=== PATIENT | male | born 1950 | race Caucasian/White ===

== ENCOUNTER 2023-09-27 10:34 | Inpatient (IN) | payer MEDICARE, BC ==
[2023-09-27] MEDS: FUROSEMIDE 10 MG/ML 4 ML VIAL IV STA (11:19)
[2023-09-27] MEDS: NITROGLYCERIN SL TABS 0.4 MG TAB SUBLINGUAL STA (11:20)
[2023-09-27 11:27] LABS: Partial Thromboplastin Time 25.6 sec (22.0-30.0); Prothrombin Time 11.2 sec (10.0-12.5)
[2023-09-27 11:31] LABS: ALT 18 U/L (4-49); AST 25 U/L (17-59); African American GFR (CKD) >90 (>60 ml/min/1.73 sqM); Alkaline Phosphatase 111 U/L (38-126); Anion Gap 7 mmol/L; Blood Urea Nitrogen 15 mg/dL (9-20); Calcium 9.3 mg/dL (8.4-10.2); Carbon Dioxide 29 mmol/L (22-30); Chloride 103 mmol/L (98-107); Glucose 288 mg/dL (74-99); Magnesium 1.8 mg/dL (1.6-2.3); Non-African American GFR(CKD) 85 (>60 ml/min/1.73 sqM); Potassium 4.9 mmol/L (3.5-5.1); Sodium 139 mmol/L (137-145); Total Bilirubin 0.8 mg/dL (0.2-1.3); Total Protein 6.8 g/dL (6.3-8.2)
--- NOTE | 2023-09-27 11:31 | ED ---
General Adult HPI - General Chief complaint: Shortness of Breath Stated complaint: Abd pain,SOB-sent by PCP Time Seen by Provider: 09/27/23 10:49 Source: patient, RN notes reviewed Mode of arrival: ambulatory Limitations: no limitations - History of Present Illness Initial comments: 73-year-old male presents emergency department with chief complaint of shortness of breath. Patient states has been having increasing shortness of breath and swelling. He does have a history of A-fib, CHF. Patient states he has had multiple ablations he states he recently stopped his Lasix 2 days ago because it was not helping he even doubled his Lasix prior to stopping it but he continued to have increasing weight gain, swelling, orthopnea and shortness of breath. Patient states his legs burn and hurt from his current swelling he states that he had significant amount of abdominal swelling and unable to get his pants on he has exertional dyspnea. - Related Data Home Medications Medication Instructions Recorded Confirmed Apixaban [Eliquis] 5 mg PO BID 01/30/23 01/30/23 Atorvastatin [Lipitor] 20 mg PO DAILY 01/30/23 01/30/23 Digoxin 250 mcg PO DAILY 01/30/23 01/30/23 INSULIN ASPART (NovoLOG) [NovoLOG See Protocol SQ AC-TID 01/30/23 01/30/23 (formulary)] Insulin Glargine,Hum.rec.anlog 30 units SQ DAILY 01/30/23 01/30/23 [Lantus Solostar Pen] Insulin Glargine,Hum.rec.anlog 80 units SQ HS 01/30/23 01/30/23 [Lantus Solostar Pen] Losartan Potassium [Cozaar] 25 mg PO DAILY 01/30/23 01/30/23 Tamsulosin HCl [Flomax] 0.4 mg PO DAILY 01/30/23 01/30/23 dilTIAZem HCL [dilTIAZem HCL 24Hr 240 mg PO DAILY 01/30/23 01/30/23 ER] metFORMIN HCL ER [Glucophage XR] 1,000 mg PO BID 01/30/23 01/30/23 Previous Rx's Medication Instructions Recorded Aspirin EC [Ecotrin Low Dose] 81 mg PO DAILY #60 tab 02/01/23 Allergies Allergy/AdvReac Type Severity Reaction Status Date / Time morphine AdvReac Nausea & Verified 01/30/23 16:52 Vomiting & Diarrhea Review of Systems ROS Statement: Those systems with pertinent positive or pertinent negative responses have been documented in the HPI. ROS Other: All systems not noted in ROS Statement are negative. Past Medical History Past Medical History: Atrial Fibrillation, Atrial Flutter, Diabetes Mellitus, Hypertension History of Any Multi-Drug Resistant Organisms: None Reported Past Surgical History: Heart Catheterization With Stent, Pacemaker Additional Past Surgical History / Comment(s): 2 cardiac stents. Past Anesthesia/Blood Transfusion Reactions: No Reported Reaction Date of Last Stent Placement:: unknown (about 5 years ago) Type of Cardiac Device: Permanent Pacemaker Device Placement Date:: 2009 Past Psychological History: Anxiety Smoking Status: Never smoker Past Alcohol Use History: Daily Past Drug Use History: None Reported General Exam Limitations: no limitations General appearance: alert, in no apparent distress Head exam: Present: atraumatic, normocephalic, normal inspection Eye exam: Present: normal appearance, PERRL, EOMI. Absent: scleral icterus, conjunctival injection, periorbital swelling ENT exam: Present: normal exam, mucous membranes moist Neck exam: Present: normal inspection. Absent: tenderness, meningismus, lymphadenopathy Respiratory exam: Present: respiratory distress, rales. Absent: normal lung sounds bilaterally, wheezes, rhonchi, stridor Cardiovascular Exam: Present: tachycardia, irregular rhythm, normal heart sounds. Absent: normal rhythm, systolic murmur, diastolic murmur, rubs, gallop, clicks GI/Abdominal exam: Present: soft, distended, normal bowel sounds. Absent: tenderness, guarding, rebound, rigid Extremities exam: Present: pedal edema, calf tenderness Course Vital Signs 09/27/23 09/27/23 10:37 11:21 Temperature 98.5 F Pulse Rate 125 H 107 H Respiratory 20 20 Rate Blood Pressure 137/79 127/91 O2 Sat by Pulse 84 L 95 Oximetry EKG Findings - EKG Comments: EKG Findings:: EKG performed at 10: 43 A-fib with RVR rate of 107 QRS 122 QT/QTc 328/391 - EKG Results: EKG: interpreted by TASHA Medical Decision Making - Medical Decision Making Was pt. sent in by a medical professional or institution (, PA, REVENUE STAMPER, urgent care, hospital, or long-term...) When possible be specific @ -No Did you speak to anyone other than the patient for history (EMS, parent, family, police, friend...)? What history was obtained from this source @ -No Did you review nursing and triage notes (agree or disagree)? Why? @ -I reviewed and agree with nursing and triage notes Were old charts reviewed (outside hosp., previous admission, EMS record, old EKG, old radiological studies, urgent care reports/EKG's, long-term records)? Report findings @ -No old charts were reviewed Differential Diagnosis (chest pain, altered mental status, abdominal pain women, abdominal pain men, vaginal bleeding, weakness, fever, dyspnea, syncope, headache, dizziness, GI bleed, back pain, seizure, CVA, palpatations, mental health, musculoskeletal)? @ -Differential Dyspnea: Coronary syndrome, arrhythmia, tamponade, asthma, COPD, pulmonary embolism, pneumonia, pneumothorax, pulmonary effusion, anaphylaxis, diabetic ketoacidosis, flailed chest, pulmonary contusion, diaphragmatic rupture, anemia, neuromuscular, this is not meant to be an all-inclusive list. EKG interpreted by me (3pts min.). @ -As above X-rays interpreted by me (1pt min.). @ -[Chest x-ray shows pulmonary edema with bilateral pleural effusions CT interpreted by me (1pt min.). @ -None done U/S interpreted by me (1pt. min.). @ -None done What testing was considered but not performed or refused? (CT, X-rays, U/S, labs)? Why? @ -None What meds were considered but not given or refused? Why? @ -None Did you discuss the management of the patient with other professionals (professionals i.e. , PA, REVENUE STAMPER, lab, RT, psych nurse, social worker health services, security door installer, teacher, commercial credit officer, outsole caser)? Give summary @Dr. Huerta admission with cardiology consult Was smoking cessation discussed for >3mins.? @ -No Was critical care preformed (if so, how long)? @ -35 minutes Were there social determinants of health that impacted care today? How? (Homelessness, low income, unemployed, alcoholism, drug addiction, transportation, low edu. Level, literacy, decrease access to med. care, usp, rehab)? @ -No Was there de-escalation of care discussed even if they declined (Discuss DNR or withdrawal of care, Hospice)? DNR status @ -No What co-morbidities impacted this encounter? (DM, HTN, Smoking, COPD, CAD, Cancer, CVA, ARF, Chemo, Hep., AIDS, mental health diagnosis, sleep apnea, morbid obesity)? @ -A-fib, CHF Was patient admitted / discharged? Hospital course, mention meds given and route, prescriptions, significant lab abnormalities, going to OR and other pertinent info. @ -Admitted patient presented for increasing dyspnea, orthopnea and leg swelling. Patient was found he pulmonary edema, A-fib with elevated heart rate. Patient has recently stopped his Lasix. Patient was given IV Lasix 40 mg, patient was given sublingual nitro. Patient has improved, patient will require further diuresis with cardiology consult. Patient continued on Lasix 40 mg IV. Patient presented hypoxic. Patient pulse ox has improved. Undiagnosed new problem with uncertain prognosis? @ -No Drug Therapy requiring intensive monitoring for toxicity (Heparin, Nitro, Insulin, Cardizem)? @ -No Were any procedures done? @ -No Diagnosis/symptom? @ -Acute CHF exacerbation, elevated troponin, A-fib Acute, or Chronic, or Acute on Chronic? @ -Acute Uncomplicated (without systemic symptoms) or Complicated (systemic symptoms)? @ -Complicated Side effects of treatment? @ -No Exacerbation, Progression, or Severe Exacerbation? @ -No Poses a threat to life or bodily function? How? (Chest pain, USA, ND, pneumonia, PE, COPD, DKA, ARF, appy, cholecystitis, CVA, Diverticulitis, Homicidal, Suicidal, threat to staff... and all critical care pts) @ -yes possible respiratory failure, cardiac arrest - Lab Data Result diagrams: 09/27/23 11:08 09/27/23 11:08 Lab Results 09/27/23 09/27/23 09/27/23 Range/Units 11:08 11:08 11:08 WBC 5.6 (3.8-10.6) k/uL RBC 4.54 (4.30-5.90) m/uL Hgb 15.1 (13.0-17.5) gm/dL Hct 47.7 (39.0-53.0) % MCV 105.0 H (80.0-100.0) fL MCH 33.3 (25.0-35.0) pg MCHC 31.7 (31.0-37.0) g/dL RDW 12.8 (11.5-15.5) % Plt Count 162 (150-450) k/uL MPV 8.5 Neutrophils % 78 % Lymphocytes % 12 % Monocytes % 7 % Eosinophils % 2 % Basophils % 1 % Neutrophils # 4.3 (1.3-7.7) k/uL Lymphocytes # 0.7 L (1.0-4.8) k/uL Monocytes # 0.4 (0-1.0) k/uL Eosinophils # 0.1 (0-0.7) k/uL Basophils # 0.0 (0-0.2) k/uL Macrocytosis Slight PT 11.2 (10.0-12.5) sec INR 1.0 (<1.2) APTT 25.6 (22.0-30.0) sec Sodium 139 (137-145) mmol/L Potassium 4.9 (3.5-5.1) mmol/L Chloride 103 (98-107) mmol/L Carbon Dioxide 29 (22-30) mmol/L Anion Gap 7 mmol/L BUN 15 (9-20) mg/dL Creatinine 0.89 (0.66-1.25) mg/dL Est GFR (CKD-EPI)AfAm >90 (>60 ml/min/1.73 sqM) Est GFR (CKD-EPI)NonAf 85 (>60 ml/min/1.73 sqM) Glucose 288 H (74-99) mg/dL Calcium 9.3 (8.4-10.2) mg/dL Magnesium 1.8 (1.6-2.3) mg/dL Total Bilirubin 0.8 (0.2-1.3) mg/dL AST 25 (17-59) U/L ALT 18 (4-49) U/L Alkaline Phosphatase 111 (38-126) U/L Troponin I (0.000-0.034) ng/mL NT-Pro-B Natriuret Pep 453 pg/mL Total Protein 6.8 (6.3-8.2) g/dL Albumin 4.0 (3.5-5.0) g/dL 09/27/23 Range/Units 11:08 WBC (3.8-10.6) k/uL RBC (4.30-5.90) m/uL Hgb (13.0-17.5) gm/dL Hct (39.0-53.0) % MCV (80.0-100.0) fL MCH (25.0-35.0) pg MCHC (31.0-37.0) g/dL RDW (11.5-15.5) % Plt Count (150-450) k/uL MPV Neutrophils % % Lymphocytes % % Monocytes % % Eosinophils % % Basophils % % Neutrophils # (1.3-7.7) k/uL Lymphocytes # (1.0-4.8) k/uL Monocytes # (0-1.0) k/uL Eosinophils # (0-0.7) k/uL Basophils # (0-0.2) k/uL Macrocytosis PT (10.0-12.5) sec INR (<1.2) APTT (22.0-30.0) sec Sodium (137-145) mmol/L Potassium (3.5-5.1) mmol/L Chloride (98-107) mmol/L Carbon Dioxide (22-30) mmol/L Anion Gap mmol/L BUN (9-20) mg/dL Creatinine (0.66-1.25) mg/dL Est GFR (CKD-EPI)AfAm (>60 ml/min/1.73 sqM) Est GFR (CKD-EPI)NonAf (>60 ml/min/1.73 sqM) Glucose (74-99) mg/dL Calcium (8.4-10.2) mg/dL Magnesium (1.6-2.3) mg/dL Total Bilirubin (0.2-1.3) mg/dL AST (17-59) U/L ALT (4-49) U/L Alkaline Phosphatase (38-126) U/L Troponin I 0.062 H* (0.000-0.034) ng/mL NT-Pro-B Natriuret Pep pg/mL Total Protein (6.3-8.2) g/dL Albumin (3.5-5.0) g/dL Critical Care Time Critical Care Time: Yes Total Critical Care Time: 35 Disposition Clinical Impression: Acute exacerbation of CHF (congestive heart failure), Elevated troponin, A-fib Disposition: ADMITTED IP TO THIS HOSP Condition: Fair Referrals: Saul Solomon MD [Primary Care Provider] - 1-2 days Time of Disposition: 12:12
[2023-09-27 11:32] LABS: Basophils % (A) 1 %; Eosinophils # (A) 0.1 k/uL (0-0.7); Eosinophils % (A) 2 %; HCT 47.7 % (39.0-53.0); HGB 15.1 gm/dL (13.0-17.5); Lymphocytes # (A) 0.7 k/uL (1.0-4.8); Lymphocytes % (A) 12 %; MCH 33.3 pg (25.0-35.0); MCHC 31.7 g/dL (31.0-37.0); Macrocytosis Slight; Mean Platelet Volume 8.5; Monocytes # (A) 0.4 k/uL (0-1.0); Monocytes % (A) 7 %; Neutrophils # (A) 4.3 k/uL (1.3-7.7); Neutrophils % (A) 78 %; Platelet Count 162 k/uL (150-450); RBC 4.54 m/uL (4.30-5.90); RDW 12.8 % (11.5-15.5); WBC 5.6 k/uL (3.8-10.6)
--- NOTE | 2023-09-27 11:38 | XR ---
EXAMINATION TYPE: XR chest 2V DATE OF EXAM: 09/27/2023 COMPARISON: None HISTORY: 73 year-old male shortness of breath, difficulty breathing TECHNIQUE: PA and lateral views FINDINGS: Left anterior chest wall pacemaker generator with right atrial and right ventricular leads. Heart mil dly enlarged. Diffuse interstitial and vascular density. Trace pleural effusions noted. DISH througho ut the thoracic spine. IMPRESSION: CHF with pulmonary vascular congestion. Trace bilateral pleural effusions.
[2023-09-27 11:39] LABS: NT-Pro-B-Type Natriuretic Pept 453 pg/mL
[2023-09-27 14:44] LABS: Glucose,Whole Blood 150 mg/dL (70-110)
[2023-09-27] MEDS ORDERED: DEXTROSE 50% SYRINGE 50 ML IVP PRN ×2 (16:58)
--- NOTE | 2023-09-27 16:59 | P.HPIM ---
History of Present Illness H&P Date: 09/27/23 Chief Complaint: Short of breath This is a pleasant 73-year-old patient, follows with Dr. Saul Solomon. 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 Johns. Stable medical condition include atrial flutter fibrillation, diabetes, hypertension, CAD with 2 stents. Permanent pacemaker 2009. In May of this year patient weighed about 26 pounds. Now up to 279 pounds. Patient gradually been putting on swelling of the legs. Becoming more more short of breath. Did see Dr. Johns was given water pills. Increase the same. He has become short of breath to the point that he had to sit up in a recliner and sleep. Abdomen is distended. Finally decided to come in. No fever no chills. Review of systems: GEN.: Tired EYES: None HEENT: None NECK: None RESPIRATORY: None CARDIOVASCULAR: As above GASTROINTESTINAL: None GENITOURINARY: None MUSCULOSKELETAL: None LYMPHATICS: None HEMATOLOGICAL: None PSYCHIATRY: None NEUROLOGICAL: None Social history: Patient drinks 2 to 3 glasses of wine daily. Used to work at [employer] on the . Retired. . No smoking. Physical examination: VITAL SIGNS: 96.3, 64, 17, 124 x 80, 96% room air GENERAL: BMI 36.6, sitting up in a chair but short of breath. EYES: Pupils equal. Conjunctiva damon l. HEENT: External appearance of nose and ears normal, oral cavity grossly normal. NECK: JVD probably raised; masses not palpable. HEART: First and second heart sounds are normal; gross edema. LUNGS: Respiratory rate n creased; creased breath sounds. ABDOMEN: Soft, distended nontender, liver spleen not palpable, no masses pa lpable. PSYCH: Alert and oriented x3; mood and affect damon l. MUSCULOSKELETAL:No Clubbing/cyanosis;muscles-grossly intact NEUROLOGICAL: Cranial nerves grossly intact; no facial asymmetry, power and sensation grossly intact. LYMPHATICS: No lymph nodes palpable in the axilla and neck INVESTIGATIONS, reviewed in the clinical context: September 27, 2023: White count 5.6 hemoglobin 15.1 platelets 162 sodium 139 potassium 4.9.15 creatinine 0.89 AST 25 ALT 18 Troponin I 0.062 proBNP 453 EKG tracing personally reviewed by me-atrial flutter tachycardia. Rate 107 Chest x-ray film personally reviewed by me-cardiomegaly. Pleural effusion. Assessment plan: -Acute congestive heart failure exacerbation. EF not known. IV Lasix 40 mg every 8.'s fluid restriction. Strict I's and O's. 2D echocardiogram. -Evaluate for alcohol liver disease. Patient drinks 2 to 3 glasses of wine every day. -Diabetes mellitus type 2, chronically on insulin Lantus 90 units. Actos. Sliding scale insulin. -Obesity BMI 36.6 Weight loss measures -Persistent atrial flutter fibrillation Cardizem CD to 40 mg twice daily. Eliquis 5 mg twice daily -Full code Care was discussed with the patient. Past Medical History Past Medical History: Atrial Fibrillation, Atrial Flutter, Diabetes Mellitus, Hypertension History of Any Multi-Drug Resistant Organisms: None Reported Past Surgical History: Heart Catheterization With Stent, Pacemaker Additional Past Surgical History / Comment(s): 2 cardiac stents. Past Anesthesia/Blood Transfusion Reactions: No Reported Reaction Date of Last Stent Placement:: unknown (about 5 years ago) Type of Cardiac Device: Permanent Pacemaker Device Placement Date:: 2009 Past Psychological History: Anxiety Smoking Status: Never smoker Past Alcohol Use History: Daily Past Drug Use History: None Reported Medications and Allergies Home Medications Medication Instructions Recorded Confirmed Type Apixaban [Eliquis] 5 mg PO BID 01/30/23 09/27/23 History INSULIN ASPART (NovoLOG) [NovoLOG See Protocol SQ AC-TID 01/30/23 09/27/23 History (formulary)] Insulin Glargine,Hum.rec.anlog 90 units SQ HS 01/30/23 09/27/23 History [Lantus Solostar Pen] Losartan Potassium [Cozaar] 25 mg PO DAILY 01/30/23 09/27/23 History dilTIAZem HCL [dilTIAZem HCL 24Hr 240 mg PO BID 01/30/23 09/27/23 History ER] Atorvastatin [Lipitor] 40 mg PO DAILY 09/27/23 09/27/23 History Pioglitazone [Actos] 30 mg PO DAILY 09/27/23 09/27/23 History Allergies Allergy/AdvReac Type Severity Reaction Status Date / Time morphine AdvReac Nausea & Verified 09/27/23 12:32 Vomiting & Diarrhea Physical Exam Vitals: Vital Signs Temp Pulse Pulse Resp BP BP Pulse Ox 09/27/23 15:42 96.3 F L 64 17 124/80 96 05/17/24 14:46 64 17 09/27/23 14:45 97.7 F 64 17 130/87 95 09/27/23 14:26 87 18 119/69 97 09/27/23 11:21 107 H 20 127/91 95 09/27/23 10:37 98.5 F 125 H 20 137/79 84 L Intake and Output 09/27/23 09/27/23 09/27/23 06:59 14:59 22:59 Intake Total 10 Balance 10 Intake: IV 10 Invasive Line 1 10 Other: Voiding Method Toilet Urinal # Bowel Movements 3 Weight 115.666 kg Results CBC & Chem 7: 09/27/23 11:08 09/27/23 11:08 Labs: Abnormal Lab Results - Last 24 Hours (Table) 09/27/23 09/27/23 09/27/23 Range/Units 11:08 11:08 11:08 MCV 105.0 H (80.0-100.0) fL Lymphocytes # 0.7 L (1.0-4.8) k/uL Glucose 288 H (74-99) mg/dL POC Glucose (mg/dL) (70-110) mg/dL Troponin I 0.062 H* (0.000-0.034) ng/mL 09/27/23 Range/Units 14:42 MCV (80.0-100.0) fL Lymphocytes # (1.0-4.8) k/uL Glucose (74-99) mg/dL POC Glucose (mg/dL) 150 H (70-110) mg/dL Troponin I (0.000-0.034) ng/mL
[2023-09-27 17:00] LABS: Glucose,Whole Blood 295 mg/dL (70-110)
[2023-09-27] MEDS: INSULIN ASPART (NovoLOG) 100 UNIT/ML VIAL SQ SCH (17:08)
[2023-09-27] MEDS: FUROSEMIDE 10 MG/ML 4 ML VIAL IV SCH (17:08)
[2023-09-27 19:57] LABS: Glucose,Whole Blood 204 mg/dL (70-110)
[2023-09-27] MEDS ORDERED: FUROSEMIDE 10 MG/ML 4 ML VIAL IV SCH (21:00)
[2023-09-27] MEDS: DILTIAZEM CD 240 MG CAP.ER.24H PO SCH (21:21)
[2023-09-27] MEDS: INSULIN DETEMIR (LEVEMIR) 100 UNIT/ML SYR SQ SCH (21:21)
[2023-09-27] MEDS: APIXABAN 5 MG TAB PO SCH (21:21)
[2023-09-28 06:25] LABS: Glucose,Whole Blood 137 mg/dL (70-110)
--- NOTE | 2023-09-28 06:27 | P.CRDCN ---
History of Present Illness Consult date: 09/28/23 History of present illness: HISTORY OF PRESENTING ILLNESS 73-year-old with past medical history of CAD s/p PCI with 2 stents, PPM since 2009, chronic atrial fibrillation, HFpEF. Obesity. He is known to Dr. Johns. At this time he presented to the hospital because of increasing weight gain of more than 30 pounds last couple of months. He also reports getting increased swelling in bilateral lower extremity and increased fatigue and tiredness along with shortness of breath. He denied having any active chest pain chest pressure shortness of breath ECG showed atrial fibrillation which is rate controlled along with IVCD. When compared to prior ECG, prior ECG showed paced rhythm. He is not in paced rhythm at this time. His prior echo showed preserved LVEF with no major valvular abnormality. REVIEW OF SYSTEMS 14 point review of system is negative except what is mentioned above in HPI. PHYSICAL EXAMINATION Vital signs reviewed. Head: Normocephalic. Eyes: Sclerae nonicteric. Neck: Brisk carotid upstroke, elevated jugular venous distention. Lungs: Reduced air entry bilateral bases with crackles audible bilateral lung moreira Heart: Irregularly regular, S1-S2, no S3, no murmur or rub. Abdomen: Soft nontender, positive bowel sounds. Extremities: 2+ pitting edema bilateral lower extremity. Neuro: Alert, oritented, no focal deficits. Detailed neuro exam was not performed. ASSESSMENT Acute HFpEF exacerbation Chronic atrial fibrillation, rate controlled History of PPM since 2009 Type 2 diabetes Essential hypertension Dyslipidemia CAD status post PCI x 2 Morbid obesity PLAN Continue pioglitazone. Do not resume on discharge. This is known to cause congestive heart failure in patients who are predispose to CHF. Reduce Lasix to 40 mg twice daily. Start Aldactone 25 mg daily, Jardiance 10 mg daily, losartan 25 mg daily. He is on Cardizem cd 240 mg twice daily Continue Eliquis 5 mg twice daily, atorvastatin 10 mg daily, aspirin 81 mg daily Atul Wong MD, FACC, RPVI Thank you for allowing [facility] to participate in this patient's care. Feel free to reach out in case of any followup questions. Past Medical History Past Medical History: Atrial Fibrillation, Atrial Flutter, Diabetes Mellitus, Hypertension History of Any Multi-Drug Resistant Organisms: None Reported Past Surgical History: Ablation, Cardiac Ablation, Heart Catheterization With Stent, Pacemaker Additional Past Surgical History / Comment(s): 2 cardiac stents. Past Anesthesia/Blood Transfusion Reactions: No Reported Reaction Date of Last Stent Placement:: unknown (about 5 years ago) Type of Cardiac Device: Permanent Pacemaker Device Placement Date:: 2009 Smoking Status: Never smoker Past Alcohol Use History: Daily Past Drug Use History: None Reported Medications and Allergies Home Medications Medication Instructions Recorded Confirmed Type Apixaban [Eliquis] 5 mg PO BID 01/30/23 09/27/23 History INSULIN ASPART (NovoLOG) [NovoLOG See Protocol SQ AC-TID 01/30/23 09/27/23 History (formulary)] Insulin Glargine,Hum.rec.anlog 90 units SQ HS 01/30/23 09/27/23 History [Lantus Solostar Pen] Losartan Potassium [Cozaar] 25 mg PO DAILY 01/30/23 09/27/23 History dilTIAZem HCL [dilTIAZem HCL 24Hr 240 mg PO BID 01/30/23 09/27/23 History ER] Atorvastatin [Lipitor] 40 mg PO DAILY 09/27/23 09/27/23 History Pioglitazone [Actos] 30 mg PO DAILY 09/27/23 09/27/23 History Allergies Allergy/AdvReac Type Severity Reaction Status Date / Time morphine AdvReac Nausea & Verified 09/27/23 12:32 Vomiting & Diarrhea Physical Exam Vitals: Vital Signs Temp Pulse Pulse Resp BP BP Pulse Ox 09/28/23 04:00 98.0 F 109 H 18 132/76 95 09/28/23 00:00 98.2 F 106 H 18 134/76 94 L 09/27/23 20:00 98.0 F 118 H 18 135/67 96 09/27/23 17:13 96.3 F L 64 17 124/80 96 09/27/23 15:42 96.3 F L 64 17 124/80 96 09/27/23 14:46 64 17 09/27/23 14:45 97.7 F 64 17 130/87 95 09/27/23 14:26 87 18 119/69 97 09/27/23 11:21 107 H 20 127/91 95 09/27/23 10:37 98.5 F 125 H 20 137/79 84 L Intake and Output 09/27/23 09/27/23 09/28/23 14:59 22:59 06:59 Intake Total 10 246 10 Output Total 300 1050 Balance 10 -54 -1040 Intake: IV 10 10 10 Invasive Line 1 10 10 10 Oral 236 Output: Urine 300 1050 Other: Voiding Method Toilet Urinal Urinal Urinal # Voids 1 # Bowel Movements 3 1 Weight 115.666 kg 115.666 kg 114 kg Results 09/27/23 11:08 09/27/23 11:08 Cardiac Enzymes 09/27/23 09/27/23 Range/Units 11:08 11:08 AST 25 (17-59) U/L Troponin I 0.062 H* (0.000-0.034) ng/mL Coagulation 09/27/23 Range/Units 11:08 PT 11.2 (10.0-12.5) sec APTT 25.6 (22.0-30.0) sec CBC 09/27/23 Range/Units 11:08 WBC 5.6 (3.8-10.6) k/uL RBC 4.54 (4.30-5.90) m/uL Hgb 15.1 (13.0-17.5) gm/dL Hct 47.7 (39.0-53.0) % Plt Count 162 (150-450) k/uL Comprehensive Metabolic Panel 09/27/23 Range/Units 11:08 Sodium 139 (137-145) mmol/L Potassium 4.9 (3.5-5.1) mmol/L Chloride 103 (98-107) mmol/L Carbon Dioxide 29 (22-30) mmol/L BUN 15 (9-20) mg/dL Creatinine 0.89 (0.66-1.25) mg/dL Glucose 288 H (74-99) mg/dL Calcium 9.3 (8.4-10.2) mg/dL AST 25 (17-59) U/L ALT 18 (4-49) U/L Alkaline Phosphatase 111 (38-126) U/L Total Protein 6.8 (6.3-8.2) g/dL Albumin 4.0 (3.5-5.0) g/dL Current Medications Generic Name Dose Route Start Last Admin Trade Name Freq PRN Reason Stop Dose Admin Apixaban 5 mg 09/27/23 21:00 09/27/23 21:21 Apixaban 5 Mg Tab PO 5 mg BID RUBEN Administration Protocol Atorvastatin Calcium 40 mg 09/28/23 09:00 Atorvastatin 40 Mg Tab PO DAILY RUBEN Dapagliflozin 10 mg 09/28/23 09:00 Dapagliflozin Propanediol 10 Mg Tablet PO DAILY RUBEN Dextrose/Water 25 ml 09/27/23 16:58 Dextrose 50% Syringe 50 Ml IVP PER PROTOCOL PRN Hypoglycemia Protocol Dextrose/Water 50 ml 09/27/23 16:58 Dextrose 50% Syringe 50 Ml IVP PER PROTOCOL PRN Hypoglycemia Protocol Diltiazem HCl 240 mg 09/27/23 21:00 09/27/23 21:21 Diltiazem Cd 240 Mg Cap.Er.24h PO 240 mg BID RUBEN Administration Furosemide 40 mg 09/28/23 09:00 Furosemide 10 Mg/Ml 4 Ml Vial IV Q12HR [facility] Insulin Aspart 0 unit 09/27/23 17:30 09/27/23 17:08 Insulin Aspart (Novolog) 100 Unit/Ml Vial SQ 30 unit AC-TID RUBEN Administration Insulin Detemir 90 unit 09/27/23 21:00 09/27/23 21:22 Insulin Detemir (Levemir) 100 Unit/Ml Syr SQ 60 unit HS RUBEN Administration Losartan Potassium 25 mg 09/28/23 09:00 Losartan 25 Mg Tab PO DAILY RUBEN Spironolactone 25 mg 09/28/23 09:00 Spironolactone 25 Mg Tab PO DAILY [facility] Intake and Output 09/27/23 09/27/23 09/28/23 14:59 22:59 06:59 Intake Total 10 246 10 Output Total 300 1050 Balance 10 -54 -1040 Intake: IV 10 10 10 Invasive Line 1 10 10 10 Oral 236 Output: Urine 300 1050 Other: Voiding Method Toilet Urinal Urinal Urinal # Voids 1 # Bowel Movements 3 1 Weight 115.666 kg 115.666 kg 114 kg Patient Weight 09/28/23 06:59 Weight 114 kg 09/27/23 11:08 09/27/23 11:08
[2023-09-28] MEDS ORDERED: PIOGLITAZONE 30 MG TAB PO SCH (09:00)
[2023-09-28] MEDS: FUROSEMIDE 10 MG/ML 4 ML VIAL IV SCH (09:10)
[2023-09-28] MEDS: SPIRONOLACTONE 25 MG TAB PO SCH (09:10)
[2023-09-28] MEDS: ATORVASTATIN 40 MG TAB PO SCH (09:10)
[2023-09-28] MEDS: DAPAGLIFLOZIN PROPANEDIOL 10 MG TABLET PO SCH (09:10)
[2023-09-28] MEDS: LOSARTAN 25 MG TAB PO SCH (09:10)
[2023-09-28 11:25] LABS: African American GFR (CKD) >90 (>60 ml/min/1.73 sqM); Anion Gap 5 mmol/L; Blood Urea Nitrogen 14 mg/dL (9-20); Calcium 9.1 mg/dL (8.4-10.2); Carbon Dioxide 32 mmol/L (22-30); Chloride 103 mmol/L (98-107); Glucose 163 mg/dL (74-99); Non-African American GFR(CKD) 80 (>60 ml/min/1.73 sqM); Potassium 3.8 mmol/L (3.5-5.1); Sodium 140 mmol/L (137-145)
[2023-09-28 11:55] LABS: Glucose,Whole Blood 242 mg/dL (70-110)
[2023-09-28 14:26] VITALS: BMI 36.0
--- NOTE | 2023-09-28 15:23 | US ---
EXAMINATION TYPE: US abdomen limited DATE OF EXAM: 09/28/2023 COMPARISON: NONE CLINICAL INDICATION: Male, 73 years old with history of Evaluate for ascites and liver morphology; TECHNIQUE: Multiple sonographic images of the right upper quadrant are obtained. FINDINGS: EXAM MEASUREMENTS: Liver Length: 19.1 cm Gallbladder Wall: 0.23 cm CBD: 0.42 cm Right Kidney: 12.3 x 6.6 x 7.2 cm ANNUAL GIVING DIRECTOR NOTES: Limited due to gas and patient body habitus Pancreas: Obscured Liver: *Enlarged, coarse, and heterogeneous with slightly increased echogenicity. Gallbladder: Appears anechoic. No shadowing gallstones are seen. Evidence for sonographic Macedo's sign: No CBD: Appears wnl Right Kidney: *Septated or bilobed hypoechoic area seen laterally: 4.0 x 4.5 x 2.8 cm., Seems to wisam w some increased through transmission but is not anechoic. No internal color Doppler flow. Assess for ascites: no ascites seen at this time. IMPRESSION: 1. Hepatomegaly and hepatic steatosis. 2. No ascites. 3. Nonspecific right renal lesion, favored to represent complex/proteinaceous cyst. Recommend follow- up ultrasound in 6 months, versus renal mass protocol MRI or CT for further characterization.
[2023-09-28 16:33] LABS: Glucose,Whole Blood 196 mg/dL (70-110)
--- NOTE | 2023-09-28 17:44 | CA ---
Transthoracic Echo Report Name: Kong Mcelroy Age: 73 Gender: M : 1950 Exam Date: 09/28/2023 08:36 Exam Location: [facility] Ht (in): 70 Wt (lb): 255 Ordering Physician: Manuel Webb MD Attending/Referring Phys: Pharmacist In Charge Jessica Hermosillo RDCS Procedure CPT: Indications: chf Cardiac Hx: Technical Quality: Poor Contrast 1: Definity Total Dose (mL): 2 Contrast 2: Total Dose (mL): MEASUREMENTS (Male / Female) Normal Values 2D ECHO LV Diastolic Diameter PLAX 6.1 cm 4.2 - 5.9 / 3.9 - 5.3 cm LV Systolic Diameter PLAX 5.5 cm IVS Diastolic Thickness 1.2 cm 0.6 - 1.0 / 0.6 - 0.9 cm LVPW Diastolic Thickness 1.3 cm 0.6 - 1.0 / 0.6 - 0.9 cm LV Relative Wall Thickness 0.4 RV Internal Dim ED PLAX 3.0 cm LA Systolic Diameter LX 4.9 cm 3.0 - 4.0 / 2.7 - 3.8 cm LA Volume 126.2 cm??? 18 - 58 / 22 - 52 cm??? LA Volume Index 51.8 cm???/m??? 16 - 28 cm???/m??? M-MODE Aortic Root Diameter MM 3.7 cm LA Systolic Diameter MM 4.6 cm LA Ao Ratio MM 1.2 DOPPLER AV Peak Velocity 118.2 cm/s AV Peak Gradient 5.6 mmHg TR Peak Velocity 276.1 cm/s TR Peak Gradient 30.5 mmHg Right Atrial Pressure 15.0 mmHg Pulmonary Artery Systolic Pressu 45.5 mmHg Right Ventricular Systolic Press 45.5 mmHg FINDINGS Left Ventricle Left ventricular ejection fraction is estimated at 20-25 %. Mildly increased septal wall thickness. Mildly increased left ventricular diastolic diameter. Reduced global left ventricular systolic function. Right Ventricle Right ventricle not well visualized. Mild pulmonary hypertension. Right Atrium Severe right atrial dilatation. Catheter/pacemaker wire in the right atrial cavity. Left Atrium Moderately increased left atrial diameter. Severely increased left atrial volume. Moderately increased left atrial area. Mitral Valve Mitral valve not well visualized. Mild thickening/calcification of the anterior mitral valve leaflet. Moderate thickening/calcification of the posterior mitral valve leaflet. Mild mitral regurgitation. Aortic Valve Trileaflet aortic valve. No aortic valve stenosis or regurgitation. Tricuspid Valve Structurally normal tricuspid valve. Mild tricuspid regurgitation. Pulmonic Valve Structurally normal pulmonic valve. No pulmonic stenosis. Trace pulmonic regurgitation. Pericardium No pericardial or pleural effusion. Aorta Mildly dilated aortic annulus. CONCLUSIONS Left ventricular ejection fraction is estimated at 20-25 %. Reduced global left ventricular systolic function. Mildly increased left ventricular diastolic diameter. Severe right atrial dilatation. Catheter/pacemaker wire in the right atrial and ventricular cavity. Moderately increased left atrial size Mild mitral regurgitation. Previewed by: Dr Atul Wong (Electronically Signed) Final Date: 28 Sep 2023 17:43
[2023-09-28 20:04] LABS: Glucose,Whole Blood 125 mg/dL (70-110)
[2023-09-29 05:52] LABS: Glucose,Whole Blood 161 mg/dL (70-110)
[2023-09-29 06:34] LABS: Basophils % (A) 1 %; Eosinophils # (A) 0.2 k/uL (0-0.7); Eosinophils % (A) 3 %; HCT 46.9 % (39.0-53.0); HGB 14.5 gm/dL (13.0-17.5); Lymphocytes # (A) 0.9 k/uL (1.0-4.8); Lymphocytes % (A) 15 %; MCH 32.6 pg (25.0-35.0); MCHC 30.8 g/dL (31.0-37.0); MCV 105.9 fL (80.0-100.0); Macrocytosis Slight; Mean Platelet Volume 8.3; Monocytes # (A) 0.5 k/uL (0-1.0); Monocytes % (A) 8 %; Neutrophils # (A) 4.3 k/uL (1.3-7.7); Neutrophils % (A) 73 %; Platelet Count 200 k/uL (150-450); RBC 4.43 m/uL (4.30-5.90); RDW 12.5 % (11.5-15.5)
[2023-09-29 06:50] LABS: African American GFR (CKD) 82 (>60 ml/min/1.73 sqM); Anion Gap 4 mmol/L; Blood Urea Nitrogen 13 mg/dL (9-20); Calcium 9.1 mg/dL (8.4-10.2); Carbon Dioxide 32 mmol/L (22-30); Chloride 104 mmol/L (98-107); Glucose 180 mg/dL (74-99); Non-African American GFR(CKD) 71 (>60 ml/min/1.73 sqM); Sodium 140 mmol/L (137-145)
[2023-09-29 11:50] LABS: Glucose,Whole Blood 207 mg/dL (70-110)
[2023-09-29 16:09] LABS: Glucose,Whole Blood 206 mg/dL (70-110)
--- NOTE | 2023-09-29 16:45 | P.PN ---
Subjective Progress Note Date: 09/29/23 HISTORY OF PRESENTING ILLNESS 73-year-old with past medical history of CAD s/p PCI with 2 stents, PPM since 2009, chronic atrial fibrillation, HFpEF. Obesity. He is known to Dr. Johns. At this time he presented to the hospital because of increasing weight gain of more than 30 pounds last couple of months. He also reports getting increased swelling in bilateral lower extremity and increased fatigue and tiredness along with shortness of breath. He denied having any active chest pain chest pressure shortness of breath ECG showed atrial fibrillation which is rate controlled along with IVCD. When compared to prior ECG, prior ECG showed paced rhythm. He is not in paced rhythm at this time. His prior echo showed preserved LVEF with no major valvular abnormality. Progress note 09/29/2023 Patient reports feeling better. Less short of breath, lower extremity swelling has gotten better, hemodynamically stable. Atrial fibrillation rate controlled REVIEW OF SYSTEMS 14 point review of system is negative except what is mentioned above in HPI. PHYSICAL EXAMINATION Vital signs reviewed. Head: Normocephalic. Eyes: Sclerae nonicteric. Neck: Brisk carotid upstroke, elevated jugular venous distention. Lungs: Reduced air entry bilateral bases with crackles audible bilateral lung moreira Heart: Irregularly regular, S1-S2, no S3, no murmur or rub. Abdomen: Soft nontender, positive bowel sounds. Extremities: 2+ pitting edema bilateral lower extremity. Neuro: Alert, oritented, no focal deficits. Detailed neuro exam was not performed. ASSESSMENT Acute HFpEF exacerbation Chronic atrial fibrillation, rate controlled History of PPM since 2009 Type 2 diabetes Essential hypertension Dyslipidemia CAD status post PCI x 2 Morbid obesity PLAN Discontinue pioglitazone. Do not resume on discharge. This is known to cause congestive heart failure in patients who are predispose to CHF. Reduce Lasix to 40 mg twice daily. Start Aldactone 25 mg daily, Jardiance 10 mg daily, losartan 25 mg daily. He is on Cardizem cd 240 mg twice daily Continue Eliquis 5 mg twice daily, atorvastatin 10 mg daily, aspirin 81 mg daily Objective - Vital Signs Vital signs: Vital Signs Temp 97.0 F L 09/29/23 08:33 Pulse 80 09/29/23 15:50 Resp 16 09/29/23 15:50 BP 111/62 09/29/23 15:50 Pulse Ox 95 09/29/23 15:50 FiO2 Intake & Output 09/28/23 09/29/23 09/29/23 18:59 06:59 18:59 Intake Total 260 10 838 Output Total 1999 1399 Balance -1740 -1390 838 Weight 114 kg 111.9 kg Intake: IV 20 10 Invasive Line 1 20 10 Oral 240 838 Output: Urine 1999 1399 Other: Voiding Method Urinal Urinal Urinal - Labs CBC & Chem 7: 09/29/23 06:15 09/29/23 06:15 Labs: Abnormal Lab Results - Last 24 Hours (Table) 09/28/23 09/29/23 09/29/23 Range/Units 20:03 05:48 06:15 MCV 105.9 H (80.0-100.0) fL MCHC 30.8 L (31.0-37.0) g/dL Lymphocytes # 0.9 L (1.0-4.8) k/uL Carbon Dioxide (22-30) mmol/L Glucose (74-99) mg/dL POC Glucose (mg/dL) 125 H 161 H (70-110) mg/dL 09/29/23 09/29/23 09/29/23 Range/Units 06:15 11:44 16:08 MCV (80.0-100.0) fL MCHC (31.0-37.0) g/dL Lymphocytes # (1.0-4.8) k/uL Carbon Dioxide 32 H (22-30) mmol/L Glucose 180 H (74-99) mg/dL POC Glucose (mg/dL) 207 H 206 H (70-110) mg/dL
[2023-09-29 20:42] LABS: Glucose,Whole Blood 161 mg/dL (70-110)
[2023-09-30 05:30] VITALS: RESP 16
[2023-09-30 06:11] LABS: Glucose,Whole Blood 159 mg/dL (70-110)
[2023-09-30 09:09] VITALS: TEMP 97.7
[2023-09-30 11:47] LABS: Glucose,Whole Blood 170 mg/dL (70-110)
[2023-09-30 13:23] VITALS: BP 135/76; PULSE 81
--- NOTE | 2023-09-30 13:44 | P.PN ---
Subjective Progress Note Date: 09/30/23 HISTORY OF PRESENTING ILLNESS 73-year-old with past medical history of CAD s/p PCI with 2 stents, PPM since 2009, chronic atrial fibrillation, HFpEF. Obesity. He is known to Dr. Johns. At this time he presented to the hospital because of increasing weight gain of more than 30 pounds last couple of months. He also reports getting increased swelling in bilateral lower extremity and increased fatigue and tiredness along with shortness of breath. He denied having any active chest pain chest pressure shortness of breath ECG showed atrial fibrillation which is rate controlled along with IVCD. When compared to prior ECG, prior ECG showed paced rhythm. He is not in paced rhythm at this time. His prior echo showed preserved LVEF with no major valvular abnormality. Progress note 09/29/2023 Patient reports feeling better. Less short of breath, lower extremity swelling has gotten better, hemodynamically stable. Atrial fibrillation rate controlled 09/29 Patient states that his breathing is better. No chest pain. He is hoping to go home today. He is currently on Lasix IV 40 mg twice daily and has been started on Aldactone. Blood pressure 135/76, heart rate 81, pulse ox 95% on room air. PHYSICAL EXAMINATION Vital signs reviewed. Head: Normocephalic. Eyes: Sclerae nonicteric. Neck: Brisk carotid upstroke, elevated jugular venous distention. Lungs: Reduced air entry bilateral bases with crackles audible bilateral lung moreira Heart: Irregularly regular, S1-S2, no S3, no murmur or rub. Abdomen: Soft nontender, positive bowel sounds. Extremities: 2+ pitting edema bilateral lower extremity. Neuro: Alert, oritented, no focal deficits. Detailed neuro exam was not performed. ASSESSMENT Acute HFpEF exacerbation Chronic atrial fibrillation, rate controlled History of PPM since 2009 Type 2 diabetes Essential hypertension Dyslipidemia CAD status post PCI x 2 Morbid obesity PLAN Discontinue pioglitazone. Do not resume on discharge. This is known to cause congestive heart failure in patients who are predispose to CHF. Transition IV Lasix to oral 40 mg twice daily, continue Aldactone 25 mg daily, Jardiance 10 mg daily, losartan 25 mg daily. He is on Cardizem cd 240 mg twice daily Continue Eliquis 5 mg twice daily, atorvastatin 10 mg daily Patient is cleared for discharge from cardiology and may follow-up with Dr. Johns in 1 week. Nurse practitioner note has been reviewed, I agree with documented findings and plan of care. Patient was seen and examined. Objective - Vital Signs Vital signs: Vital Signs Temp 97.7 F 09/30/23 08:59 Pulse 90 09/30/23 09:00 Resp 16 09/30/23 09:00 BP 131/73 09/30/23 08:59 Pulse Ox 94 L 09/30/23 08:59 FiO2 Intake & Output 09/29/23 09/30/23 09/30/23 18:59 06:59 18:59 Intake Total 956 678 710 Output Total 1300 900 Balance -344 -222 710 Weight 110 kg Intake: IV 20 10 Invasive Line 1 20 10 Oral 956 658 700 Output: Urine 1300 900 Other: Voiding Method Urinal Urinal Urinal - Labs CBC & Chem 7: 09/29/23 06:15 09/29/23 06:15 Labs: Abnormal Lab Results - Last 24 Hours (Table) 09/29/23 09/29/23 09/29/23 Range/Units 11:44 16:08 20:40 POC Glucose (mg/dL) 207 H 206 H 161 H (70-110) mg/dL 09/30/23 Range/Units 06:09 POC Glucose (mg/dL) 159 H (70-110) mg/dL
[2023-09-30] MEDS: FUROSEMIDE 40 MG TAB PO SCH (16:06)
== END 2023-09-30 16:38 | disposition home or self-care (01) | DRG 291 ==
LOC: EC 10:34 → 3SCARD 12:11 → OBSVTOIN 09-30 08:13
PROVIDERS: ADMIT Hospitalist; ATTEND Hospitalist
DX: I11.0 Hypertensive heart disease with heart failure (principal); I50.33 Acute on chronic diastolic (congestive) heart failure; I48.92 Unspecified atrial flutter; I48.19 Other persistent atrial fibrillation; E11.9 Type 2 diabetes mellitus without complications; Z79.4 Long term (current) use of insulin; E66.01 Morbid (severe) obesity due to excess calories; Z79.01 Long term (current) use of anticoagulants; R79.89 Other specified abnormal findings of blood chemistry; I25.10 Atherosclerotic heart disease of native coronary artery without angina pectoris; E78.5 Hyperlipidemia, unspecified; F41.9 Anxiety disorder, unspecified; Z71.3 Dietary counseling and surveillance; R09.02 Hypoxemia; Z79.82 Long term (current) use of aspirin; Z79.84 Long term (current) use of oral hypoglycemic drugs; Z79.899 Other long term (current) drug therapy; Z95.5 Presence of coronary angioplasty implant and graft; Z88.5 Allergy status to narcotic agent
CPT/HCPCS: 36415; 71046; 76705; 80048; 80053; 83036; 83735; 83880; 84484; 85025; 85610; 85730; 93005; 93306; 94760; 96374; 99291